=== PATIENT | female | born 1970 | race African-American/Black ===

== ENCOUNTER 2021-10-25 11:45 | Inpatient (IN) | payer SELFPAY ==
[2021-10-25] MEDS ORDERED: Sodium Chloride 0.9% 2.5 ML Syringe FLUSH PRN (12:03)
[2021-10-25] MEDS ORDERED: Sodium Chloride 0.9% 10 ML Syringe FLUSH PRN (12:03)
[2021-10-25] MEDS ORDERED: Ondansetron 4 MG/2 ML SDV IVPUSH ONE (12:03)
[2021-10-25] MEDS ORDERED: Lactated Ringers 1,000 ML IV ONE (12:03)
[2021-10-25] MEDS ORDERED: Thiamine 100 MG in Sodium Chloride 0.9% 100 ML IV ONE (12:05)
[2021-10-25] MEDS ORDERED: Folic Acid 50 MG/10 ML MDV IV STA (12:05)
[2021-10-25] MEDS ORDERED: Thiamine 200 MG/2 ML MDV IVPUSH ONE (12:45)
[2021-10-25] MEDS ORDERED: Folic Acid 50 MG/10 ML MDV IV ONE (12:45)
[2021-10-25 13:22] LABS: BLOOD UREA NITROGEN,BUN 25 mg/dL (7.0-18.0); CARBON DIOXIDE,CO2 30.3 mmol/L (21.0-32.0); CHLORIDE,CL 98 mmol/L (98-107); GLUCOSE RANDOM 96 mg/dL (74-106); LIPASE 55 U/L (73-393); POTASSIUM,K 2.6 mmol/L (3.5-5.1); SODIUM,NA 140 mmol/L (136-145)
[2021-10-25] MEDS ORDERED: Potassium Chloride Riders 40 MEQ in Premix Bag 1 BAG IV ONE (13:42)
[2021-10-25] MEDS ORDERED: Sodium Chloride 0.9% 1,000 ML IV SCH (14:30)
[2021-10-25] MEDS ORDERED: Iopamidol 755 MG/ML 500 ML Multipack Bottle IVPUSH STA (14:50)
[2021-10-25] MEDS ORDERED: Acetaminophen 325 MG Tab PO PRN (17:15)
[2021-10-25] MEDS ORDERED: Albuterol/Ipratropium 3.0-0.5 MG/3 ML Neb Soln NEB PRN (17:15)
[2021-10-25] MEDS ORDERED: Ondansetron 4 MG/2 ML SDV IVPUSH PRN (17:20)
[2021-10-25] MEDS ORDERED: tiZANidine 4 MG Tab PO PRN (17:25)
[2021-10-25] MEDS: Pantoprazole 40 MG in Sodium Chloride 0.9% 10 ML IVPUSH SCH (19:08)
[2021-10-25] MEDS ORDERED: Magnesium Oxide 400 MG Tab PO ONE (22:38)
[2021-10-25] MEDS ORDERED: 50% Dextrose in Water 50 ML Syringe IVPUSH PRN (22:52)
[2021-10-25] MEDS ORDERED: Glucagon,Human Recombinant 1 MG Vial IM PRN (22:52)
[2021-10-26] MEDS: Insulin Aspart 100 Units/ML 3 ML Pen SUBCUT SCH ×3 (09:00→17:26)
[2021-10-26] MEDS: Hydrochlorothiazide 25 MG Tab PO SCH (09:42)
[2021-10-26] MEDS: Pantoprazole 40 MG in Sodium Chloride 0.9% 10 ML IVPUSH SCH (09:43)
[2021-10-26 10:24] LABS: POTASSIUM,K 3.1 mmol/L (3.5-5.1)
[2021-10-26] MEDS ORDERED: Magnesium Sulfate/Water 2 GM/50 ML Premix Bag IV ONE (12:00)
[2021-10-26] MEDS ORDERED: Sodium Chloride 0.9% with KCl 1,000 ML IV SCH (12:00)
[2021-10-26] MEDS ORDERED: Magnesium Sulfate/Water 2 GM in Premix Bag 1 BAG IV ONE (12:30)
[2021-10-26] MEDS: Metoclopramide 10 MG/2 ML SDV IVPUSH PRN ×2 (12:31→20:31)
[2021-10-27] MEDS: Insulin Aspart 100 Units/ML 3 ML Pen SUBCUT SCH ×3 (08:11→17:06)
[2021-10-27 08:13] LABS: CARBON DIOXIDE,CO2 28.3 mmol/L (21.0-32.0); POTASSIUM,K 4.1 mmol/L (3.5-5.1)
[2021-10-27] MEDS: Hydrochlorothiazide 25 MG Tab PO SCH (09:17)
[2021-10-27] MEDS: Metoclopramide 10 MG/2 ML SDV IVPUSH PRN ×2 (09:17→17:06)
[2021-10-27] MEDS: Pantoprazole 40 MG in Sodium Chloride 0.9% 10 ML IVPUSH SCH (09:18)
[2021-10-27] MEDS ORDERED: Lactated Ringers 1,000 ML IV SCH (13:30)
[2021-10-28 06:42] LABS: BLOOD UREA NITROGEN,BUN 15 mg/dL (7.0-18.0); CARBON DIOXIDE,CO2 28.1 mmol/L (21.0-32.0); CHLORIDE,CL 105 mmol/L (98-107); GLUCOSE RANDOM 83 mg/dL (74-106); POTASSIUM,K 3.9 mmol/L (3.5-5.1); SODIUM,NA 140 mmol/L (136-145)
[2021-10-28] MEDS: Insulin Aspart 100 Units/ML 3 ML Pen SUBCUT SCH ×2 (08:05→12:43)
[2021-10-28] MEDS: Pantoprazole 40 MG in Sodium Chloride 0.9% 10 ML IVPUSH SCH (08:15)
[2021-10-28] MEDS: Metoclopramide 10 MG/2 ML SDV IVPUSH PRN (08:15)
[2021-10-28] MEDS: Hydrochlorothiazide 25 MG Tab PO SCH (08:15)
== END 2021-10-28 14:40 | disposition home or self-care (01) | DRG 641 ==
LOC: MW.ED 11:45 → MW.MS 15:16 → INTOOBSV 10-27 16:00 → OBSVTOIN 10-27 16:00 → MW.MS 10-27 16:01
PROVIDERS: ADMIT Student in an Organized Health Care Education/Training Program; ATTEND Student in an Organized Health Care Education/Training Program
DX: E87.6 Hypokalemia (principal); E83.42 Hypomagnesemia; E86.0 Dehydration; E11.9 Type 2 diabetes mellitus without complications; K21.9 Gastro-esophageal reflux disease without esophagitis; E78.00 Pure hypercholesterolemia, unspecified; I10 Essential (primary) hypertension; R79.89 Other specified abnormal findings of blood chemistry; M19.90 Unspecified osteoarthritis, unspecified site; Z86.16 Personal history of COVID-19; Z79.84 Long term (current) use of oral hypoglycemic drugs; Z79.899 Other long term (current) drug therapy; Z98.84 Bariatric surgery status; Z20.822 Contact with and (suspected) exposure to COVID-19
CPT/HCPCS: 36415; 74177; 74177-26; 80048; 80053; 82947; 83690; 83735; 84100; 84484; 85025; 93005; 93010; 96365; 96366; 96375; 96376; 99218; 99224; 99231; 99238; 99283; 99285-25; A9270-GY; C9113; G0378; J2405; J2765; J3411; J3475; J3480; J3490; J7030; J7120; Q9967; U0002

== ENCOUNTER 2021-11-16 20:23 | Emergency (ER) | payer MEDICAID ==
[2021-11-16] MEDS ORDERED: Ondansetron 4 MG/2 ML SDV IVPUSH ONE (23:01)
[2021-11-16] MEDS ORDERED: Sodium Chloride 0.9% 1,000 ML IV ONE (23:01)
[2021-11-17 00:41] LABS: CARBON DIOXIDE,CO2 30.5 mmol/L (21.0-32.0)
[2021-11-17] MEDS ORDERED: Potassium Chloride 20 MEQ Tab.ER PO STA (01:49)
[2021-11-17] MEDS ORDERED: Metoclopramide 10 MG/2 ML SDV IVPUSH STA (01:58)
[2021-11-17] MEDS ORDERED: Pantoprazole 40 MG in Sodium Chloride 0.9% 10 ML IVPUSH STA (01:59)
[2021-11-17] MEDS ORDERED: Magnesium Sulfate/Water 2 GM in Premix Bag 1 BAG IV STA (02:16)
== END 2021-11-17 03:22 | disposition home or self-care (01) ==
LOC: MW.ED 20:23
DX: R11.10 Vomiting, unspecified (principal); E78.00 Pure hypercholesterolemia, unspecified; I10 Essential (primary) hypertension; E11.9 Type 2 diabetes mellitus without complications; E66.9 Obesity, unspecified; Z68.42 Body mass index [BMI] 45.0-49.9, adult; Z86.16 Personal history of COVID-19; Z79.899 Other long term (current) drug therapy; Z79.84 Long term (current) use of oral hypoglycemic drugs
CPT/HCPCS: 36415; 80053; 81003; 83690; 83735; 85025; 96365; 96375; 99284; A9270; C9113; J2405; J2765; J3475; J3490; J7030; 99283

== ENCOUNTER 2022-10-01 00:29 | Emergency (ER) | payer MEDICAID ==
[2022-10-01] MEDS ORDERED: Ketorolac 30 MG/ML SDV IM ONE (00:50)
[2022-10-01] MEDS ORDERED: Diazepam 2 MG Tab PO ONE (00:50)
[2022-10-01] MEDS ORDERED: HYDROmorphone 1 MG/ML Syringe IM ONE (00:50)
== END 2022-10-01 03:09 | disposition home or self-care (01) ==
LOC: MW.ED 00:29
DX: M25.561 Pain in right knee (principal); E11.9 Type 2 diabetes mellitus without complications; E78.00 Pure hypercholesterolemia, unspecified; I10 Essential (primary) hypertension; E66.9 Obesity, unspecified; Z68.39 Body mass index [BMI] 39.0-39.9, adult; Z86.16 Personal history of COVID-19; Z79.899 Other long term (current) drug therapy; Z79.84 Long term (current) use of oral hypoglycemic drugs
CPT/HCPCS: 96372; 99283; A9270-GY; J1170; J1885

== ENCOUNTER 2022-11-27 07:37 | Inpatient (IN) | payer MEDICAID ==
[~2022-11-27 07:37] MED LIST: Famotidine 20 MG/2 ML SDV IVPUSH SCH; Ropivacaine 49.25 ML, Ketorolac 30 MG, EPINEPHrine 0.5 MG, cloNIDine 80 MCG in Sodium C... INJECT SCH
[2022-11-27] MEDS ORDERED: Albuterol 0.083% 2.5 MG/3 ML Neb Soln NEB PRN (07:48)
[2022-11-27] MEDS ORDERED: droPERidol 5 MG/2 ML SDV IVPUSH PRN (07:48)
[2022-11-27] MEDS ORDERED: Naloxone 0.4 MG/ML SDV IVPUSH PRN (07:48)
[2022-11-27] MEDS ORDERED: Morphine 2 MG/ML SYRINGE IVPUSH PRN (07:48)
[2022-11-27] MEDS ORDERED: Metoclopramide 10 MG/2 ML SDV IVPUSH PRN (07:48)
[2022-11-27] MEDS ORDERED: Ondansetron 4 MG/2 ML SDV IVPUSH PRN ×2 (07:48→12:00)
[2022-11-27] MEDS ORDERED: fentaNYL 50 MCG/ML SDV IVPUSH PRN (07:48)
[2022-11-27] MEDS ORDERED: HYDROmorphone 1 MG/ML Syringe IVPUSH PRN (07:48)
[2022-11-27] MEDS ORDERED: ceFAZolin 2 GM in Premix Bag 1 BAG IV SCH (08:00)
[2022-11-27] MEDS ORDERED: Tranexamic Acid 1,000 MG in Sodium Chloride 0.9% 100 ML IV ONE (08:00)
[2022-11-27] MEDS: Lactated Ringers 1,000 ML IV SCH ×2 (08:26→14:04)
[2022-11-27] MEDS ORDERED: Famotidine 20 MG/2 ML SDV ONE ×2 (08:28→08:45)
[2022-11-27] MEDS ORDERED: propofoL 50 ML ONE (08:37)
[2022-11-27] MEDS ORDERED: Midazolam 1 MG/ML 2 ML SDV ONE (08:37)
[2022-11-27] MEDS ORDERED: fentaNYL 100 MCG/2 ML SDV ONE (08:37)
[2022-11-27] MEDS ORDERED: Ropivacaine 0.5% 5 MG/ML 30 ML SDV ONE (08:45)
[2022-11-27] MEDS ORDERED: Ketamine 500 mg/10 ML MDV ONE (09:17)
[2022-11-27] MEDS ORDERED: Tranexamic Acid 1,000 MG/10 ML Vial ONE (10:08)
[2022-11-27] MEDS ORDERED: ceFAZolin 2 GM Vial ONE (10:09)
[2022-11-27] MEDS ORDERED: Ketorolac 30 MG/ML SDV ONE (11:48)
[2022-11-27] MEDS ORDERED: Dexamethasone 4 MG/ML 5 ML MDV ONE (11:48)
[2022-11-27] MEDS ORDERED: Metoclopramide 10 MG/2 ML SDV ONE (11:48)
[2022-11-27] MEDS ORDERED: Sodium Chloride 0.9% 2.5 ML Syringe FLUSH PRN (11:53)
[2022-11-27] MEDS ORDERED: diphenhydrAMINE 25 MG Cap PO PRN (12:00)
[2022-11-27] MEDS ORDERED: traMADol 50 MG Tab PO PRN (12:00)
[2022-11-27] MEDS ORDERED: Sodium Chloride 0.9% 10 ML Syringe FLUSH PRN (12:00)
[2022-11-27] MEDS ORDERED: Aluminum Hydroxide/Magnesium Hydroxide/Simethicone XS Susp 30 ML Cup PO PRN (12:00)
[2022-11-27] MEDS: Ketorolac 30 MG/ML SDV IVPUSH SCH ×2 (13:14→18:27)
[2022-11-27] MEDS: Acetaminophen 325 MG Tab PO SCH ×3 (13:23→20:33)
[2022-11-27] MEDS: Morphine 2 MG/ML SYRINGE IVPUSH PRN ×2 (14:01→20:41)
[2022-11-27] MEDS: oxyCODONE 5 MG Tab PO PRN (14:53)
[2022-11-27] MEDS: ceFAZolin 2 GM in Sodium Chloride 0.9% 50 ML IV SCH (16:46)
[2022-11-27] MEDS: Aspirin 325 MG Tab PO SCH (18:57)
[2022-11-27] MEDS: Docusate Sodium 100 MG Cap PO SCH (20:33)
[2022-11-27] MEDS ORDERED: atorvaSTATin 20 MG Tab PO SCH (21:00)
[2022-11-28] MEDS: Ketorolac 30 MG/ML SDV IVPUSH SCH (00:46)
[2022-11-28] MEDS: Lactated Ringers 1,000 ML IV SCH (00:50)
[2022-11-28] MEDS: ceFAZolin 2 GM in Sodium Chloride 0.9% 50 ML IV SCH (00:54)
[2022-11-28] MEDS: Acetaminophen 325 MG Tab PO SCH ×4 (00:54→12:20)
[2022-11-28] MEDS: oxyCODONE 5 MG Tab PO PRN ×2 (02:13→09:42)
[2022-11-28 08:09] LABS: CARBON DIOXIDE,CO2 27.6 mmol/L (21.0-32.0); POTASSIUM,K 4.1 mmol/L (3.5-5.1)
[2022-11-28] MEDS ORDERED: Sodium Chloride 0.9% 1,000 ML IV SCH (08:15)
[2022-11-28] MEDS: Aspirin 325 MG Tab PO SCH (08:38)
[2022-11-28] MEDS ORDERED: Famotidine 20 MG Tab PO SCH (09:00)
[2022-11-28] MEDS ORDERED: Hydrochlorothiazide 25 MG Tab PO SCH (09:00)
[2022-11-28] MEDS ORDERED: Multivitamin Tab PO SCH (09:00)
[2022-11-28] MEDS ORDERED: Polyethylene Glycol 3350 Powder 17 GM Packet PO SCH (09:00)
[2022-11-28] MEDS ORDERED: Cholecalciferol (Vitamin D3) 25 MCG Tab PO SCH (09:00)
[2022-11-28] MEDS: Docusate Sodium 100 MG Cap PO SCH (09:41)
== END 2022-11-28 15:30 | disposition home or self-care (01) | DRG 470 ==
LOC: MW.SDS 07:37 → MW.MS 12:42
PROVIDERS: ADMIT Orthopaedic Surgery; ATTEND Orthopaedic Surgery
PROC: 0SRD0J9 Replacement of Left Knee Joint with Synthetic Substitute, Cemented, Open Approach (ICD-10-PCS; principal; 2022-11-27)
DX: M17.12 Unilateral primary osteoarthritis, left knee (principal); Z68.41 Body mass index [BMI] 40.0-44.9, adult; E66.9 Obesity, unspecified; N18.9 Chronic kidney disease, unspecified; K21.9 Gastro-esophageal reflux disease without esophagitis; I12.9 Hypertensive chronic kidney disease with stage 1 through stage 4 chronic kidney disease, or unspecified chronic kidney disease; D64.9 Anemia, unspecified; Z79.899 Other long term (current) drug therapy; Z86.16 Personal history of COVID-19; Z87.891 Personal history of nicotine dependence
CPT/HCPCS: 36415; 73560-26-LT; 73560-LT; 80048; 85014; 85018; 97163-GP; 97530-GP; A9270-GY; J0131; J0171; J0690; J0735; J1100; J1885; J2250; J2270; J2405; J2704; J2765; J2795; J3010; J3490; J7120

== ENCOUNTER 2023-12-13 23:07 | Emergency (ER) | payer MEDICAID, OTHER | END 2023-12-14 02:08 | disposition home or self-care (01) | LOC: MW.ED 23:07 | DX: S16.1XXA Strain of muscle, fascia and tendon at neck level, initial encounter (principal); M79.652 Pain in left thigh; I10 Essential (primary) hypertension; E11.9 Type 2 diabetes mellitus without complications; Z75.8 Other problems related to medical facilities and other health care; Z79.899 Other long term (current) drug therapy; Z79.82 Long term (current) use of aspirin; Z86.16 Personal history of COVID-19; V40.5XXA Car driver injured in collision with pedestrian or animal in traffic accident, initial encounter; Y93.89 Activity, other specified | CPT/HCPCS: 71045; 71045-26; 72100; 72100-26; 72125; 72125-26; 72170; 72170-26; 99282; 99284 ==